=== PATIENT | female | born 1965 | race Caucasian/White ===

== ENCOUNTER 2024-10-08 06:29 | Day surgery (SDC) | payer BC, SELFPAY | END 2024-10-08 10:48 | disposition home or self-care (01) | LOC: GI 06:29 | PROVIDERS: ATTENDING PHYSICIAN Specialist; FAMILY PHYSICIAN Family Medicine | DX: Z12.11 Encounter for screening for malignant neoplasm of colon (principal); D12.3 Benign neoplasm of transverse colon; K57.30 Diverticulosis of large intestine without perforation or abscess without bleeding | CPT/HCPCS: 45385; 88305 ==